=== PATIENT | male | born 1995 | race African-American/Black ===

== ENCOUNTER 2017-03-09 22:12 | Emergency (ER) | payer OTHER ==
[~2017-03-09] VITALS: Ht 172.7 cm; Wt 84.8 kg
[2017-03-09 22:19] VITALS: BP 140/80
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
[2017-03-10] MEDS ORDERED: IBUPROFEN800 M1 PO (00:15)
[2017-03-10] MEDS ORDERED: ROBAXIN-750750 M1 PO (00:15)
== END 2017-03-10 00:27 ==
LOC: ERH 22:12
DX: M54.2 Cervicalgia (principal)
CPT/HCPCS: 72050; 72110